=== PATIENT | female | born 1965 | race Caucasian/White ===

== ENCOUNTER → 2023-07-22 12:07 | Outpatient (REF) | payer OTHER, SELFPAY | LOC: HWWDC 12:07 | PROVIDERS: ATTENDING PHYSICIAN Nurse Practitioner Family | DX: Z12.31 Encounter for screening mammogram for malignant neoplasm of breast (principal) | CPT/HCPCS: 77063; 77067 ==

== ENCOUNTER → 2024-09-07 12:38 | Outpatient (REF) | payer OTHER, SELFPAY | LOC: HWWDC 12:38 | PROVIDERS: ATTENDING PHYSICIAN Nurse Practitioner Family | DX: Z12.31 Encounter for screening mammogram for malignant neoplasm of breast (principal) | CPT/HCPCS: 77063; 77067 ==